=== PATIENT | male | born 1950 | race Caucasian/White ===

== ENCOUNTER 2025-01-08 08:17 | Emergency (ER) | payer BC ==
[~2025-01-08] VITALS: Ht 170.2 cm; Wt 49.9 kg
[2025-01-08] MEDS ORDERED: MORPHINE SULFATE INJ 2 MG/ML DISP.SYRIN ONE (09:17)
[2025-01-08] MEDS: MORPHINE SULFATE INJ 2 MG/ML DISP.SYRIN IV ONE (09:24)
[2025-01-08 09:26] LABS: PLATELET COUNT (AUTO) 316 K/uL (150-450); RED BLOOD CELL COUNT(AUTO) 4.22 MIL/uL (4.5-6.0); RED CELL DISTRIBUTION WIDTH 16.0 % (11.5-15.0); WHITE BLOOD COUNT (AUTO) 13.6 K/uL (4.3-11.0)
[2025-01-08 09:29] LABS: CALCIUM, SERUM 8.8 mg/dL (8.5-10.1); CREATININE 0.8 mg/dL (0.6-1.3); SODIUM SERUM 138 mmol/L (136-145); UREA NITROGEN, BLOOD 14 mg/dL (7-18)
[2025-01-08 09:35] LABS: ASPARTATE AMINOTRANSFERASE 6 U/L (15-37); TOTAL PROTEIN, SERUM 7.0 g/dL (6.4-8.2)
[2025-01-08] MEDS ORDERED: IOHEXOL-300 100 ML VIAL IV ONE (09:45)
[2025-01-08] MEDS ORDERED: IV NS 0.9% 250 ML IV ONE (09:45)
[2025-01-08] MEDS ORDERED: KETOROLAC TROMETHAMINE 15 MG/ML VIAL ONE (10:56)
[2025-01-08] MEDS: KETOROLAC TROMETHAMINE 15 MG/ML VIAL IV ONE (10:59)
[2025-01-08 11:00] LABS: APPEARANCE,URINE CLEAR (CLEAR); BLOOD, URINE Negative Ery/uL (NEGATIVE); LEUKOCYTE ESTERASE ,URINE Negative (NEGATIVE); UGLUCOSE Negative (NEGATIVE)
[2025-01-08 11:02] LABS: NITRITE, URINE NEGATIVE (NEGATIVE)
[2025-01-08] MEDS ORDERED: hydrALAZINE HCL IV 20 MG VIAL ONE (11:19)
[2025-01-08] MEDS: hydrALAZINE HCL IV 20 MG VIAL IV ONE (11:30)
[2025-01-08] MEDS ORDERED: LIDOCAINE 1%-EPI 1:100,000 20 ML VIAL ONE (12:59)
[2025-01-08] MEDS: LIDOCAINE 1%-EPI 1:100,000 20 ML VIAL TP ONE (13:03)
[2025-01-08 13:28] VITALS: BP 149/70; O2SAT 97
== END 2025-01-08 13:39 | disposition home or self-care (01) ==
LOC: ER 08:26
DX: K61.0 Anal abscess (principal); K59.00 Constipation, unspecified; I10 Essential (primary) hypertension; F32.A Depression, unspecified; Z86.73 Personal history of transient ischemic attack (TIA), and cerebral infarction without residual deficits; Z88.0 Allergy status to penicillin; Z88.2 Allergy status to sulfonamides
CPT/HCPCS: 46050; 99285; 74177; 96374; 96375; 85025; 80048; 80076; 81003; 36415; J1885; J0360; J7050; A6403; J3490; J2270; Q9967